=== PATIENT | female | born 1995 | race Hispanic/Latino ===

== ENCOUNTER 2020-10-09 20:26 | Emergency (ER) | payer BC, OTHER ==
[2020-10-09 20:39] VITALS: BP 109/73
[2020-10-09] MEDS ORDERED: TETANUS,DIPH,PERTUSS(ACELL) VACCINE 0.5 ML SYRINGE IM ONE (22:59)
[2020-10-09] MEDS ORDERED: LIDOCAINE (1%) 10 MG/1 ML VIAL 20 ML MDV INFILTRATI ONE (22:59)
--- NOTE | 2020-10-09 23:03 | Emergency Department Report ---
- General Chief Complaint: Wound/Laceration Stated Complaint: LACERATION TO RT LEG Time Seen by Provider: 10/09/20 22:58 Source: patient Mode of arrival: Wheelchair Limitations: Physical Limitation - History of Present Illness -: Sudden, This evening (around 8 pm) Location: other (Right thigh) Extremity Location: Right: Hip Place: home Patient Tetanus UTD: No Context: accidental, sharp object use, other (Patient states she was cutting her jeans into shorts. She states she had a piece of plywood over her lap and had the jeans laid over wood when plywood slipped and she accidentally cut her leg with scissors ) Associated Symptoms: pain. denies: loss of feeling/numbness, suspect foreign body present, unable to move injured part, weakness followed by dizziness, nausea/vomiting, fever Treatments Prior to Arrival: bandage - Related Data Previous Rx's Medication Instructions Recorded Last Taken Type Ibuprofen [Motrin] 800 mg PO Q8HR PRN #30 tablet 10/10/20 Unknown Rx Allergies Allergy/AdvReac Type Severity Reaction Status Date / Time No Known Allergies Allergy Unverified 06/11/13 09:06 ED Review of Systems ROS: Stated complaint: LACERATION TO RT LEG Other details as noted in HPI Comment: All other systems reviewed and negative Constitutional: denies: chills, fever Eyes: denies: eye pain, eye discharge, vision change ENT: denies: ear pain, throat pain Respiratory: denies: cough, shortness of breath, wheezing Cardiovascular: denies: chest pain, palpitations Musculoskeletal: myalgia Skin: other (laceration right thigh) Neurological: denies: headache, weakness, numbness, paresthesias, confusion, abnormal gait, vertigo ED Past Medical Hx - Past Medical History Previous Medical History?: No - Surgical History Past Surgical History?: No - Medications Home Medications: Home Medications Medication Instructions Recorded Confirmed Last Taken Type Ibuprofen [Motrin] 800 mg PO Q8HR PRN #30 tablet 10/10/20 Unknown Rx ED Physical Exam - General Limitations: Physical Limitation General appearance: alert, in no apparent distress - Head Head exam: Present: atraumatic, normocephalic, normal inspection - Respiratory Respiratory exam: Absent: respiratory distress - Cardiovascular Cardiovascular Exam: Present: regular rate - Neurological Exam Neurological exam: Present: alert, oriented X3, CN II-XII intact, normal gait - Psychiatric Psychiatric exam: Present: normal affect, normal mood - Skin Skin exam: Present: other (Superficial linear laceration noted to anterior proximal right thigh. No active bleeding. No apparent fb. TTP around wound and mild swelling) ED Course Vital Signs 10/09/20 20:36 Temperature 99.0 F Pulse Rate 99 H Respiratory 18 Rate Blood Pressure 109/73 O2 Sat by Pulse 99 Oximetry - Laceration /Wound Repair Right Anterior Thigh Wound Location: lower extremity (Right anterior thigh) Wound Length (cm): 9 Wound's Depth, Shape: superficial Wound Explored: clean Betadine Prep?: Yes Anesthesia: 1% Lidocaine Volume Anesthetic (ccs): 10 Wound Repaired With: sutures Suture Size/Type: 4:0, nylon Number of Sutures: 10 Layer Closure?: No Sterile Dressing Applied?: Yes Progress: Patient tolerated procedure well. No complications. Critical care attestation.: If time is entered above; I have spent that time in minutes in the direct care of this critically ill patient, excluding procedure time. ED Disposition Clinical Impression: Laceration of right thigh Disposition: TO HOME OR SELFCARE Is pt being admited?: No Does the pt Need Aspirin: No Condition: Stable Instructions: Laceration Care, Adult, [id number], Sutures, Elias, or Adhesive Wound Closure Additional Instructions: Do not with the wound for the first 24 hours. After 24 hours you can clean them briefly with soap and water, dry well after each cleaning and apply a thin layer of Neosporin. Do this daily until the stitches need to be removed which will be the next 14 days. Return to the ER if you notice any signs and symptoms of infection such as pus drainage, increasing pain redness or swelling. Prescriptions: Ibuprofen [Motrin] 800 mg PO Q8HR PRN #30 tablet PRN Reason: Pain Referrals: ULYSSES GRIFFIN MD [Staff Physician] - 10/24/20 (For suture removal) Time of Disposition: 00:21
[2020-10-10] MEDS ORDERED: NEOMY 3.5 MG/BACIT 400 UNITS/POLY B 5000 UNITS/GM OINT PACKET TP ONE (00:22)
== END 2020-10-10 00:30 | disposition home or self-care (01) ==
LOC: ED 20:26
DX: S71.112A Laceration without foreign body, left thigh, initial encounter (principal); Z79.899 Other long term (current) drug therapy; W26.8XXA Contact with other sharp object(s), not elsewhere classified, initial encounter; Y93.89 Activity, other specified; Y92.89 Other specified places as the place of occurrence of the external cause; Y99.8 Other external cause status
CPT/HCPCS: 12004; 90471; 90715; 99282; A6250